=== PATIENT | male | born 1965 | race Two or more races ===

== ENCOUNTER 2022-05-12 05:00 | Day surgery (SDC) | payer OTHER ==
[~2022-05-12 05:00] MED LIST: ADULT LOW DOSE81 M1 PO; CARVEDILOL6.25 MG; COZAAR100 MG PO; LIPITOR20 MG PO; PROTONIX20 MG PO
[2022-05-12] MEDS ORDERED: PERCOCET 5-3251 EACH PO (11:48)
== END 2022-05-12 13:40 | disposition home or self-care (01) ==
LOC: CIR.AMB 05:00
PROVIDERS: ATTEND Surgery
DX: N52.01 Erectile dysfunction due to arterial insufficiency (principal); N47.1 Phimosis; Z20.822 Contact with and (suspected) exposure to COVID-19; Z91.041 Radiographic dye allergy status; I10 Essential (primary) hypertension; J45.909 Unspecified asthma, uncomplicated; Z95.1 Presence of aortocoronary bypass graft
CPT/HCPCS: 54405; C1813

== ENCOUNTER 2022-09-29 06:10 | Day surgery (SDC) | payer OTHER ==
[~2022-09-29 06:10] MED LIST changes: +PERCOCET 5-3251 EACH PO; +PROAIR RESPICL90 MCG IH
[2022-09-29] MEDS ORDERED: PERCOCET 5-3251 EACH PO (13:54)
[2022-09-29] MEDS ORDERED: AUGMENTIN XR 11 EACH PO (13:55)
== END 2022-09-29 15:00 | disposition home or self-care (01) ==
LOC: CIR.AMB 06:10
PROVIDERS: ATTEND Surgery
DX: N52.9 Male erectile dysfunction, unspecified (principal); T83.410S Breakdown (mechanical) of implanted penile prosthesis, sequela; N47.1 Phimosis; I89.0 Lymphedema, not elsewhere classified; Z91.041 Radiographic dye allergy status; Z20.822 Contact with and (suspected) exposure to COVID-19; I10 Essential (primary) hypertension; Z88.8 Allergy status to other drugs, medicaments and biological substances
CPT/HCPCS: 54410; 14040; C1813